=== PATIENT | male | born 1985 | race Hispanic/Latino ===

== ENCOUNTER 2016-08-07 10:03 | Day surgery (SDC) | payer MEDICAID ==
[2016-08-07] VITALS (9 sets, daily range): BP systolic 109–125; BP diastolic 53–69; PULSE 68–96; RESP 12–17; O2SAT 94–98
[~2016-08-07] VITALS: Ht 152.4 cm; Wt 66.9 kg
[~2016-08-07 10:03] MED LIST: Clindamycin 900 mg/50 mL D5W IV ONE; Dexamethasone 4 mg/mL Inj IVPUSH PRN; EPHEDrine Sulfate 50 mg/mL Inj IVPUSH PRN; HYDROmorphone 1 mg/mL Inj IVPUSH PRN; Labetalol 5 mg/mL 4 mL Inj IV PRN; Lactated Ringer's 1,000 ML IV SCH; Lactated Ringer's 500 ML IV PRN; MetoCLOpramide 5 mg/mL 2 mL Inj IVPUSH PRN; Ondansetron 2 mg/mL 2 mL Inj IVPUSH PRN; Phenylephrine 10,000 mCg/mL Inj IVPUSH PRN; fentaNYL-PF 50 mCg/mL 2 mL Inj IVPUSH PRN; hydrALAZINE 20 mg/mL Inj IVPUSH PRN
[2016-08-07] MEDS ORDERED: Dexamethasone 4 mg/mL Inj ONE (10:04)
[2016-08-07] MEDS ORDERED: Neostigmine 1 mg/mL 10 mL Inj ONE (10:04)
[2016-08-07] MEDS ORDERED: Glycopyrrolate 0.2 MG/ML 1mL Inj ONE (10:04)
[2016-08-07] MEDS ORDERED: fentaNYL-PF 50 mCg/mL 2 mL Inj ONE (10:04)
[2016-08-07] MEDS ORDERED: Ketamine 10 mg/mL 20 mL Inj ONE (10:04)
[2016-08-07] MEDS ORDERED: Phenylephrine/NS 100 mCg/mL 10 mL Syringe IVPUSH ONE (10:04)
[2016-08-07] MEDS ORDERED: Lidocaine PF 1% 30 mL Inj ONE (10:04)
[2016-08-07] MEDS ORDERED: Propofol 10,000 mCg/mL 20 mL Inj ONE (10:04)
[2016-08-07] MEDS ORDERED: Ondansetron 2 mg/mL 2 mL Inj ONE (10:04)
[2016-08-07] MEDS: Lactated Ringer's 1,000 ML IV SCH ×3 (10:24→16:52)
--- NOTE | 2016-08-07 13:02 | PCM.HPANE ---
Patient Data Date of Service: Aug 07, 2016 Surgeon Admitting Provider: Attending Provider:Desmond Pop MD Primary Care Physician:Je Other Provider:Josy Griffiths Anesthesia Reason for Visit Basal Cell Carcinoma Left Cheek Ht/WT & BMI Height (Feet): 5 Height (Inches): 0 Weight (Kilograms): 66.9 Body Mass Index 28.00 Allergies Coded Allergies: No Known Allergies (Unverified , 08/02/16) Past Anesthesia History Anesthesia History: Denies:: Anesthesia Reactions (no prior surgery) Diabetes History Hx Diabetes?: No MRSA MRSA: No Medications Hypertension Medication: No Home Meds Incl Beta Vikki: No No Active Prescriptions or Reported Meds History History of ENT Problems?: Yes HEENT History: Denies:: Cataracts Glaucoma Hearing Problem Hx of Heart Problems?: No Cardiovascular History: Denies:: AICD Chest Pain Congestive Heart Failure Coronary Artery Disease Edema Heart Murmur Hypertension Irregular Heartbeat Pacemaker Respiratory History: Denies:: Asthma COPD Emphysema Oxygen Administration Pneumonia Tuberculosis Use of C-PAP Machine Use of Inhalers / NEBS Neurological History: Denies:: Alzheimer's Disease Headaches Multiple Sclerosis Parkinson's Disease Seizures Hx of GI Problems?: No Gastrointestinal History: Denies:: Cirrhosis Gastroesphageal Reflux Gastrointestinal Bleeding Hiatal Hernia Hx of Problems?: No Genitourinary History: Denies:: Kidney Stones Urinary Tract Infection Male Hx: Denies:: Prostate Problems Skin History: Positive for:: History Skin Disorders? (bcc left cheek) Hx Musculoskeletal Problems?: No Musculoskeletal History: Denies:: Back Injury Fibromyalgia Joint Replacement Musculoskeletal Trauma Myasthenia Gravis Osteoarthritis Systemic Lupus Hx of Psycho/Social Problems?: No Hx Surgeries?: No Hx Any Other Health Problems?: Yes Other History: Positive for:: Cancer (bcc current admission problem) Denies:: Thyroid Disease Hx Diabetes: No Hx Alcohol Use: YesAlcoholic Drinks Per Day: occasional beer/wineHx Substance Use: NoHave You Smoked inLast 12 mo: No Stop/Bang Treated for Sleep Apnea?: No Do You Have a CPAP Machine?: No S-Snoring: Do You Snore Loudly: No T-Tired: feel tired, fatigued: No O-Obsered: Observed not breath: No P-Blood Pressure: treated: No B- Body Mass Index > 35 kg/m2: No A- Age over 50: No N- Neck Large Circumference: No G- Gender Male: Yes RITESH Total Score: 1 RITESH Risk Assessment: Low Risk, <3 Yes Risk Assessment Category Category 1A: Patient has history of documented sleep apnea, and HAS NOT received any narcotic, sedative or anesthesia administration during this stay. Category 1B: Patient has history of documented sleep apnea, and HAS received any narcotic , sedative or anesthesia administration during this stay Category 2: Patient has SUSPECTED Obstructive Sleep Apnea, and HAS received any narcotic , sedative or anesthesia administration during this stay. Category 3: Patient has SUSPECTED Obstructive Sleep Apnea and HAS NOT received narcotic, sedative or anesthesia administration during this stay. Category 4: Outpatient in Procedural Areas with known sleep apnea or who screen positive for High Risk via the STOP/BANG questionnaire. Exam Exam Vital Signs Vital Signs Date Time Temp Pulse Resp B/P Pulse Ox O2 Delivery O2 Flow Rate FiO2 08/07/16 10:30 36.3 68 17 116/64 98 Room Air General Appearance: Alert, Oriented X3, Cooperative, No Acute Distress HEENT/AIRWAY: MP 2 Lungs: Clear to Auscultation, Normal Air Movement Heart: Exam Unremarkable, Regular Rate/Rhythm, No Murmurs/Rubs/Gallops Meds/Labs/Diagnostics Admission Meds Current Medications Lactated Ringer's (Lr) 1,000 ml @ 120 mls/hr [id number] IV Last administered on t 10:24; Start 08/07/16 at 05:00; Stop 08/07/16 at 13:19 Plan Impression Patient chart reviewed, patient interviewed and anesthestic plan with risks, benefits, and alternatives discussed, and informed consent obtained. NPO Status: 2100 08/06/16 ASA Physical Status: ASA2 Mod Systemic Disease Anesthetic Plan: GA Bene/Risks/Altern/Consents: Yes HP Complete Prior to Induction: Yes Everette Tellez MD Aug 07, 2016 13:02
[2016-08-07] MEDS ORDERED: Bupivacaine-MPF 0.5% 30 mL Inj INFILTRATE ONE (13:05)
[2016-08-07] MEDS ORDERED: Lidocaine 1%-Epi 1:100,000 20 mL Inj INFILTRATE ONE (13:05)
[2016-08-07] MEDS ORDERED: oxyCODONE-Acetamin 5-325 mg Tablet PO PRN (15:10)
--- NOTE | 2016-08-07 15:47 | PCM.ANEP2 ---
Post Anesthesia Evaluation ASA/CMS Post Anesthesia VS in Patient's Normal Range?: Yes Resp Stable; Airway Patent?: Yes CV Function & Hydration Stable: Yes Mental Status Recovered?: Yes Pain control Satisfactory?: Yes N/V Control Satisfactory?: Yes Everette Tellez MD Aug 07, 2016 15:47
--- NOTE | 2016-08-07 15:47 | PCM.ANEP1 ---
Post Anesthesia Phase 1 PACU Phase 1 Assessment Date of Service: Aug 07, 2016 Vital Signs Vital Signs Date Time Temp Pulse Resp B/P Pulse Ox O2 Delivery O2 Flow Rate FiO2 08/07/16 15:40 96 17 109/54 94 08/07/16 15:25 92 14 113/56 95 Room Air 08/07/16 15:20 12 111/56 94 Simple Mask 8 08/07/16 15:15 87 14 115/57 94 Simple Mask 8 08/07/16 15:10 36.9 88 16 115/53 98 Simple Mask 8 08/07/16 10:30 36.3 68 17 116/64 98 Room Air Anesthetic Administered: GA Level of Alertness: Sleepy, easy to arouse KRAMER's with Equal Strength: Yes Pain: No Nausea or Vomiting: No Lungs: Clear to Auscultation, Normal Air Movement Everette Tellez MD Aug 07, 2016 15:47
--- NOTE | 2016-08-07 15:48 | OP ---
[address] [id number] OPERATIVE REPORT PATIENT: KHANG CESAR : 1985 MR#: [id number] ADMIT: 08/07/2016 JOB ID: [id number] DATE OF SURGERY: 08/07/2016 PREOPERATIVE DIAGNOSIS(ES): Left medial cheek and lower eyelid basal cell carcinoma. POSTOPERATIVE DIAGNOSIS(ES): Left medial cheek and lower eyelid basal cell carcinoma. POSTOPERATIVE DIAGNOSIS(ES): PROCEDURE: 1. Excision of left medial cheek and lower eyelid basal cell carcinoma, excised dimension 3.5 cm x 3 cm. 2. Closure of left medial cheek defect with a cheek flap, total area of local tissue rearrangement 30 sq cm. SURGEON: Desmond Pop M.D. GRIEVANCE MANAGER: None. ANESTHESIA: General anesthesia. ESTIMATED BLOOD LOSS: 20 cc. COMPLICATIONS: None apparent. SPECIMEN: 1. Left medial cheek basal cell carcinoma to Pathology. Frozen section demonstrated positive deep margin and positive superolateral margin. 2. Additional deep margin. Frozen section demonstrated negative surgical margin. 3. Additional superior lateral margin. Frozen section demonstrated negative surgical margin. DRAINS: None. INDICATIONS FOR PROCEDURE: This is a 30-year-old male patient with a large basal cell carcinoma of the left medial cheek. This was proven with biopsies. At this point, excision of the basal cell carcinoma is indicated. PROCEDURES AND FINDINGS: The patient was identified in the preoperative area. Surgical site was marked. The patient was then taken back to the operating room and placed supine on the operating table. Appropriate time-outs were taken. General anesthesia was induced smoothly. The patient was then prepped and draped in the usual sterile manner. Local anesthesia was then injected around the surgical site around the basal cell carcinoma consisting of 1% lidocaine with epinephrine and Marcaine. Incision was then made around the basal cell carcinoma approximately 2-3 mm away from the apparent edge of this tumor. This was done with a 15 blade. I then deepened the incision down to the underlying soft tissue with a #15 blade. I then elevated the circular piece of skin and the basal cell carcinoma off of the underlying soft tissue with electrocautery. Inferiorly the specimen was divided at the superficial aspect of the cheek fat. As I approached the superior aspect of the tumor, I started to encounter orbicularis oculi muscle. I then peeled the specimen off of the orbicularis oculi muscle until the superior lateral aspect of this tumor where the tuber appears to erode into the muscle. The specimen fractured at this area. A stitch was then used to elias the superior aspect of the specimen and a long stitch was used to elias the lateral. I then turned my attention to the area where the tumor fractured off. Using electrocautery, I resected the tumor off of the surrounding orbicularis oculi muscle with approximately 1-2 mm of healthy muscle as a specimen both peripherally and down deep. This was marked at the deep aspect and was passed off to Pathology as well. I personally delivered the specimen to Pathology for a frozen section. Frozen section demonstrated positive skin margin at the superior lateral border. The deep margin was negative as it demonstrated an intact skeletal muscle underneath the tumor. I returned to the operating room, and resected another 3 mm of skin away from the superior and lateral border of the defect. This was done from approximately 11 o'clock of the wound to approximately 4 o'clock of the wound. This was passed off to Pathology for frozen section, which demonstrated no residual tumor. After hemostasis was obtained with electrocautery, I designed a cheek flap. A superior incision was extended along the inferior orbital rim all the way to the lateral orbital rim and extending up toward the restorationism. Another incision was extended from the inferior medial border of the defect down along the nasolabial fold to near the oral commissure. Incisions were then were then made with a #15 blade. Superiorly it was deepened down to just superficial to the orbicularis oculi muscle. I then elevated the cheek flap in the subcutaneous plane all the way out to past the malar eminence. Inferiorly and medially the flap was again elevated in the superficial subcutaneous plane all the way down to near the oral commissure. Hemostasis was obtained with electrocautery. The flap was then advanced into the defect and sutured in place using several 3-0 Monocryl deep dermal sutures. Excess flap was trimmed. A layer of 5-0 Monocryl deep dermal sutures were then placed for additional deep dermal reapproximation. A small Burow triangle was then removed around the lateral orbital rim to smooth out the contour in this area. Once this has been done, a layer of 5-0 Prolene simple running suture was then placed for final epidermal reapproximation. The patient tolerated the procedure well. Needle count, sponge count and instrument counts were correct at the end of the procedure. The patient was extubated and transported to recovery in a stable condition.
[2016-08-07] MEDS ORDERED: Promethazine 12.5 mg/50 mL D5W IV ONE ×4 (16:20→16:25)
== END 2016-08-07 23:59 | disposition home or self-care (01) ==
LOC: SAS 10:03
PROVIDERS: ATTEND Plastic Surgery
DX: C44.319 Basal cell carcinoma of skin of other parts of face (principal); C44.119 Basal cell carcinoma of skin of left eyelid, including canthus
CPT/HCPCS: 14041; J1100; J1885; J2250; J2370; J2405; J2550; J2710; J3010; J7120